=== PATIENT | female | born 1970 | race Caucasian/White ===

== ENCOUNTER 2018-11-26 21:14 | Emergency (ER) | payer OTHER ==
[~2018-11-26] VITALS: Ht 162.6 cm; Wt 90.7 kg
[2018-11-26 23:12] LABS: Urine Bacteria FEW /hpf (None Seen); Urine Blood Negative /uL (Negative); Urine Mucus FEW (None Seen); Urine Specific Gravity 1.049 (1.001-1.035); Urine WBC 14 /hpf (0 - 5)
[2018-11-26 23:26] VITALS: BP 120/64
[2018-11-27] MEDS ORDERED: PHENAZOPYRIDINE HCL 100 MG TAB PO ONE
[2018-11-27] MEDS ORDERED: cefTRIAXone SOD 1,000 MG VL IM ONE
== END 2018-11-27 00:39 | disposition home or self-care (01) ==
LOC: ER 21:17
DX: N39.0 Urinary tract infection, site not specified (principal)
CPT/HCPCS: 81001; 81025; 96372; 99283; J0696